=== PATIENT | female | born 1945 | race Caucasian/White ===

== ENCOUNTER 2017-06-23 08:59 | Outpatient (CLI) | payer MEDICARE, OTHER | END 2017-06-23 09:00 | disposition home or self-care (01) | LOC: BICMAMMO 08:59 | PROVIDERS: ATTEND Family Medicine | DX: Z13.820 Encounter for screening for osteoporosis (principal); M85.88 Other specified disorders of bone density and structure, other site | CPT/HCPCS: 77080 ==

== ENCOUNTER 2018-05-26 14:13 | Outpatient (CLI) | payer MEDICARE, OTHER ==
--- NOTE | 2018-05-26 14:53 | MMO ---
FILMS COMPARED: The present examination has been compared to prior imaging studies performed at [facility] on 02/06/1999, 05/12/2000, 03/31/2007, 07/05/2009, 04/15/2014, 10/26/2015 and 02/05/2017. MAMMOGRAM FINDINGS: There are scattered fibroglandular densities. There are benign appearing calcifications seen in both breasts. There are no suspicious masses, calcifications or areas of architectural distortion. IMPRESSION: CALCIFICATIONS IN BOTH BREASTS ARE BENIGN. A ROUTINE FOLLOW-UP MAMMOGRAM IN 1 YEAR IS RECOMMENDED. ACR BI-RADS Category 2 - Benign finding
== END 2018-05-26 14:14 | disposition home or self-care (01) ==
LOC: BICMAMMO 14:13
PROVIDERS: ATTEND Family Medicine
DX: Z12.31 Encounter for screening mammogram for malignant neoplasm of breast (principal); R92.1 Mammographic calcification found on diagnostic imaging of breast
CPT/HCPCS: 77063; 77067

== ENCOUNTER 2019-10-08 09:11 | Outpatient (CLI) | payer MEDICARE, OTHER ==
--- NOTE | 2019-10-08 09:49 | ULT ---
EXAM: US Breast Limited Lt PROVIDED CLINICAL HISTORY: Left breast palpable abnormality COMPARISON: None FINDINGS: Limited sonographic interrogation was performed of the left breast in the region of palpable concern. The sonographic appearance of the breast tissue in this region is normal. IMPRESSION: No sonographic abnormality is evident in the region of clinical concern. Negative imaging findings sh ould not preclude further evaluation of a clinically suspicious finding. Patient is referred back to her clinician.
--- NOTE | 2019-10-08 09:49 | ULT ---
EXAM: US Breast Limited Rt PROVIDED CLINICAL HISTORY: Right breast palpable abnormalities COMPARISON: None FINDINGS: Limited sonographic interrogation was performed of the right breast in the regions of palpable concer n. The sonographic appearance of the breast tissue in this region is normal. IMPRESSION: No sonographic abnormality is evident in the regions of clinical concern. Negative imaging findings s hould not preclude further evaluation of a clinically suspicious finding. Patient is referred back to her clinician.
--- NOTE | 2019-10-08 09:49 | MMO ---
Bilateral MAMMO Bilat Diag [facility]. CLINICAL HISTORY: Patient is 73 years old and is seen for diagnostic exam. The patient has no family history of breast cancer. The patient has no personal history of cancer. VIEWS: The views performed were: bilateral craniocaudal with tomosynthesis; bilateral mediolateral oblique with tomosynthesis; and bilateral mediolateral with tomosynthesis. FILMS COMPARED: The present examination has been compared to prior imaging studies performed at [facility] on 02/05/2017, 05/26/2018 and 10/08/2019. This study has been interpreted with the assistance of computer-aided detection. MAMMOGRAM FINDINGS: There are scattered fibroglandular densities. There are no suspicious masses, suspicious calcifications, or new areas of architectural distortion. There are no mammographic or sonographic abnormalities in the areas of palpable concern. The patient is referred back to her clinician. Negative imaging findings should not preclude biopsy if clinical findings are suspicious. IMPRESSION: THERE ARE NO MAMMOGRAPHIC OR SONOGRAPHIC ABNORMALITIES IN THE AREAS OF PALPABLE CONCERN. THE PATIENT IS REFERRED BACK TO HER CLINICIAN. NEGATIVE IMAGING FINDINGS SHOULD NOT PRECLUDE BIOPSY IF CLINICAL FINDINGS ARE SUSPICIOUS. THE RESULTS OF THIS EXAM WERE SENT TO THE PATIENT. ACR BI-RADS Category 1 - Negative MAMMOGRAPHY NOTE: 1. A negative mammogram report should not delay a biopsy if a dominant of clinically suspicious mass is present. 2. Approximately 10% to 15% of breast cancers are not detected by mammography. 3. Adenosis and dense breasts may obscure an underlying neoplasm. Reported by: AIDEN TALOBT MD Electonically Signed: [id number]
== END 2019-10-08 09:12 | disposition home or self-care (01) ==
LOC: BICMAMMO 09:11
PROVIDERS: ATTEND Family Medicine
DX: N63.0 Unspecified lump in unspecified breast (principal)
CPT/HCPCS: 76642 ×2; 77066; G0279

== ENCOUNTER 2020-12-05 14:48 | Outpatient (CLI) | payer MEDICARE, OTHER | END 2020-12-05 14:49 | disposition home or self-care (01) | LOC: ULT 14:48 | PROVIDERS: ATTEND Registered Nurse Community Health | DX: R22.1 Localized swelling, mass and lump, neck (principal) | CPT/HCPCS: 76536 ==

== ENCOUNTER 2021-05-10 09:31 | Outpatient (CLI) | payer MEDICARE, OTHER | END 2021-05-10 09:32 | disposition home or self-care (01) | LOC: BICMAMMO 09:31 | PROVIDERS: ATTEND Family Medicine | DX: Z12.31 Encounter for screening mammogram for malignant neoplasm of breast (principal) | CPT/HCPCS: 77063; 77067 ==

== ENCOUNTER 2022-02-21 13:15 | Outpatient (CLI) | payer MEDICARE, OTHER | END 2022-02-21 13:16 | disposition home or self-care (01) | LOC: BICRAD 13:15 | PROVIDERS: ATTEND Internal Medicine Rheumatology | DX: M70.62 Trochanteric bursitis, left hip (principal); M81.0 Age-related osteoporosis without current pathological fracture; M77.9 Enthesopathy, unspecified ==

== ENCOUNTER 2022-04-10 09:22 | Outpatient (CLI) | payer MEDICARE, OTHER | END 2022-04-10 09:23 | disposition home or self-care (01) | LOC: BICMAMMO 09:22 | PROVIDERS: ATTEND Internal Medicine Rheumatology | DX: M81.0 Age-related osteoporosis without current pathological fracture (principal); M85.852 Other specified disorders of bone density and structure, left thigh; M85.851 Other specified disorders of bone density and structure, right thigh | CPT/HCPCS: 77080 ==

== ENCOUNTER 2023-12-12 12:59 | Outpatient (CLI) | payer MEDICARE, OTHER | END 2023-12-12 13:00 | disposition home or self-care (01) | LOC: ULT 12:59 | PROVIDERS: ATTEND Family Medicine | DX: R60.0 Localized edema (principal) | CPT/HCPCS: 93970 ==

== ENCOUNTER 2023-12-17 07:42 | Outpatient (CLI) | payer MEDICARE, OTHER | END 2023-12-17 07:43 | disposition home or self-care (01) | LOC: CT 07:42 | PROVIDERS: ATTEND Internal Medicine Nephrology | DX: N18.9 Chronic kidney disease, unspecified (principal); N20.0 Calculus of kidney | CPT/HCPCS: 74176 ==